=== PATIENT | male | born 1935 | race Caucasian/White ===

== ENCOUNTER 2016-02-10 23:02 | Inpatient (IN) | payer MEDICARE, OTHER ==
[~2016-02-10] VITALS: Ht 172.7 cm; Wt 90.7 kg
[~2016-02-10 23:02] MED LIST: AMIT25TA9 PO; DILT240C2 PO; DUTA0.5C PO; FURO40TA5 PO; GLYB5TAB4 PO; HYDR-429 PO; LIRA0.6P SQ; POTA10CA43 PO; PRAV40TA3 PO; PRED5TAB PO; RANO500T3 PO; VALS320T2 PO; ZOLP10TA6 PO
[2016-02-10] MEDS ORDERED: IPRATROPIUM NEB FS 0.5 MG/2.5 ML AMPUL.NEB ONE (23:20)
[2016-02-10] MEDS ORDERED: ALBUTEROL FS 2.5 MG/0.5 ML VIAL.NEB ONE (23:20)
[2016-02-10] MEDS ORDERED: methylPREDNISolone SOD SUCC 125 MG/2ML VIAL ONE (23:26)
[2016-02-10] MEDS ORDERED: FUROSEMIDE 40 MG/4 ML VIAL ONE (23:26)
[2016-02-10] MEDS ORDERED: methylPREDNISolone SOD SUCC 125 MG/2ML VIAL IV ONE (23:30)
[2016-02-10] MEDS ORDERED: ALBUTEROL FS 2.5 MG/0.5 ML VIAL.NEB NEB ONE (23:30)
[2016-02-10] MEDS ORDERED: IPRATROPIUM NEB FS 0.5 MG/2.5 ML AMPUL.NEB NEB ONE (23:30)
[2016-02-10] MEDS ORDERED: FUROSEMIDE 40 MG/4 ML VIAL IV ONE (23:30)
[2016-02-10 23:32] LABS: BASOPHILS % (AUTO) 0.4 % (0.0-2.0); DIFF TOTAL % 100 %; EOSINOPHILS # (AUTO) 0.5 /CMM (0.0-0.7); EOSINOPHILS % (AUTO) 3.8 % (0.0-6.0); HEMATOCRIT 39 % (39-51); HEMOGLOBIN 12.9 g/dL (13.5-17.5); LYMPHOCYTES # (AUTO) 2.8 /CMM (0.8-4.8); LYMPHOCYTES % (AUTO) 22.7 % (20.0-44.0); MEAN CORPUSCULAR HEMOGLOBIN 28 PG (26.0-33.0); MEAN CORPUSCULAR HGB CONC 33 g/dl (31.0-36.0); MEAN CORPUSCULAR VOLUME 84 fL (80-96); MONOCYTES # (AUTO) 0.9 /CMM (0.1-1.30); MONOCYTES % (AUTO) 7.2 % (2.0-12.0); NEUTROPHILS # (AUTO) 8.2 /CMM (1.8-8.9); NEUTROPHILS % (AUTO) 65.9 % (43.0-81.0); PLATELET COUNT (AUTO) 339 /CMM (150-450); RED BLOOD CELL COUNT(AUTO) 4.68 MIL/uL (4.5-6.0); WHITE BLOOD COUNT (AUTO) 12.4 K/uL (4.3-11.0)
[2016-02-10 23:42] LABS: ANION GAP 13 (5-14); CALCIUM, SERUM 8.2 mg/dL (8.5-10.1); CARBON DIOXIDE 29 mmol/L (21-32); CHLORIDE 105 mmol/L (98-107); GLUCOSE 146 mg/dL (74-106); POTASSIUM 3.9 mmol/L (3.5-5.1); SODIUM SERUM 143 mmol/L (136-145); UREA NITROGEN, BLOOD 25 mg/dL (7-18)
[2016-02-10 23:44] LABS: INR 0.94 (0.87-1.13); PROTHROMBIN TIME 10.1 SECS (9.5-12.7)
[2016-02-10 23:50] LABS: TROPONIN I < 0.017 ng/mL (0.00-0.056)
[2016-02-10 23:51] LABS: LACTIC ACID 0.3 mmol/L (0.4-2.0)
[2016-02-10 23:56] LABS: ALANINE AMINOTRANSFERASE 26 U/L (12-78); ALBUMIN 3.4 g/dL (3.4-5.0); BILIRUBIN,DIRECT 0.1 mg/dL (0.0-0.2); BILIRUBIN,TOTAL 0.4 mg/dL (0.2-1.0); INDIRECT BILIRUBIN 0.3 mg/dL (0.0-1.1); TOTAL PROTEIN, SERUM 6.8 g/dL (6.4-8.2)
[2016-02-11] VITALS (7 sets, daily range): BP systolic 129–146; BP diastolic 62–81
[2016-02-11 00:22] LABS: ASPARTATE AMINOTRANSFERASE 16 U/L (15-37)
[2016-02-11] MEDS ORDERED: IPRATROPIUM NEB FS 0.5 MG/2.5 ML AMPUL.NEB NEB PRN (02:00)
[2016-02-11] MEDS ORDERED: ONDANSETRON HCL/PF 4 MG/2 ML VIAL IV PRN ×2 (02:00→11:00)
[2016-02-11] MEDS ORDERED: ALBUTEROL FS 2.5 MG/3 ML VIAL.NEB NEB PRN (02:00)
[2016-02-11] MEDS ORDERED: ACETAMINOPHEN 325 MG TABLET PO PRN (02:00)
[2016-02-11] MEDS ORDERED: HYDROCODONE/APAP 10/325MG 1 EA TABLET PO PRN (02:00)
[2016-02-11] MEDS ORDERED: DEXTROSE 50%-WATER 50 ML DISP.SYRIN IV PRN (02:00)
[2016-02-11] MEDS ORDERED: INSULIN REGULAR, HUMAN 100 UNIT/ML 10 ML VIAL ONE (05:45)
[2016-02-11] MEDS: BLOOD SUGAR DIAGNOSTIC 1 EACH STRIP IN SCH ×4 (05:53→21:31)
[2016-02-11] MEDS: INSULIN REGULAR, HUMAN 100 UNIT/ML 3 ML VIAL SQ PRN ×3 (07:04→18:30)
[2016-02-11 07:37] LABS: DIFF TOTAL % 100 %; HEMATOCRIT 39 % (39-51); HEMOGLOBIN 12.9 g/dL (13.5-17.5); LYMPHOCYTES # (AUTO) 0.8 /CMM (0.8-4.8); LYMPHOCYTES % (AUTO) 6.3 % (20.0-44.0); MEAN CORPUSCULAR HEMOGLOBIN 28 PG (26.0-33.0); MEAN CORPUSCULAR HGB CONC 33 g/dl (31.0-36.0); MEAN CORPUSCULAR VOLUME 83 fL (80-96); MONOCYTES # (AUTO) 0.1 /CMM (0.1-1.30); MONOCYTES % (AUTO) 0.7 % (2.0-12.0); NEUTROPHILS # (AUTO) 11.3 /CMM (1.8-8.9); PLATELET COUNT (AUTO) 317 /CMM (150-450); RED BLOOD CELL COUNT(AUTO) 4.69 MIL/uL (4.5-6.0); WHITE BLOOD COUNT (AUTO) 12.1 K/uL (4.3-11.0)
[2016-02-11 07:59] LABS: CALCIUM, SERUM 8.4 mg/dL (8.5-10.1); CREATININE 1.1 mg/dL (0.6-1.3); PHOSPHORUS 2.1 mg/dL (2.5-4.9); POTASSIUM 3.6 mmol/L (3.5-5.1)
[2016-02-11] MEDS ORDERED: predniSONE 20 MG TABLET PO SCH (09:00)
[2016-02-11] MEDS: AMITRIPTYLINE HCL 25 MG TABLET PO SCH (09:28)
[2016-02-11] MEDS ORDERED: predniSONE 5 MG TABLET PO SCH (09:33)
[2016-02-11] MEDS: glyBURIDE 5 MG TABLET PO SCH ×2 (09:53→16:00)
[2016-02-11] MEDS: FUROSEMIDE 40 MG TABLET PO SCH (09:53)
[2016-02-11] MEDS: DUTASTERIDE (0.5 MG) 0.5 MG CAPSULE PO SCH (09:53)
[2016-02-11] MEDS: POTASSIUM CHLORIDE 10 MEQ TABLET.SA PO SCH ×2 (09:53→16:00)
[2016-02-11] MEDS: DILTIAZEM HCL CD 240 MG PO SCH (09:53)
[2016-02-11] MEDS: VALSARTAN 80 MG TABLET PO SCH (09:54)
[2016-02-11] MEDS ORDERED: K PHOS NEUTRAL 250 MG TABLET PO ONE (11:30)
[2016-02-11] MEDS: PANTOPRAZOLE 40 MG TABLET.DR PO SCH (11:53)
[2016-02-11] MEDS: HEPARIN SODIUM, PORCINE 5000 UNITS/1 ML VIAL SQ SCH ×2 (11:54→21:34)
[2016-02-11] MEDS ORDERED: methylPREDNISolone SOD SUCC 40 MG/ML VIAL IV SCH (12:00)
[2016-02-11] MEDS: methylPREDNISolone SOD SUCC 40 MG/ML VIAL IV SCH ×2 (14:17→23:03)
[2016-02-11] MEDS: RANEXA 500 MG PO SCH (16:00)
[2016-02-11] MEDS: VICTOZA SQ SCH (16:00)
[2016-02-11] MEDS ORDERED: LEVOFLOXACIN (500MG) 500 MG TABLET PO SCH (16:00)
[2016-02-11] MEDS: ALBUTEROL FS 2.5 MG/3 ML VIAL.NEB NEB SCH (20:08)
[2016-02-11] MEDS: IPRATROPIUM NEB FS 0.5 MG/2.5 ML AMPUL.NEB NEB SCH (20:08)
[2016-02-11] MEDS: ATORVASTATIN 10 MG TABLET PO SCH (21:32)
[2016-02-12] MEDS: ZOLPIDEM TARTRATE 10 MG TABLET PO PRN ×2 (01:36→21:48)
[2016-02-12] MEDS: IPRATROPIUM NEB FS 0.5 MG/2.5 ML AMPUL.NEB NEB SCH ×4 (01:41→20:04)
[2016-02-12] MEDS: ALBUTEROL FS 2.5 MG/3 ML VIAL.NEB NEB SCH ×4 (01:41→20:05)
[2016-02-12] MEDS: BLOOD SUGAR DIAGNOSTIC 1 EACH STRIP IN SCH ×4 (05:45→21:00)
[2016-02-12] MEDS: INSULIN REGULAR, HUMAN 100 UNIT/ML 3 ML VIAL SQ PRN ×4 (05:48→21:12)
[2016-02-12 06:48] LABS: DIFF TOTAL % 100 %; HEMATOCRIT 39 % (39-51); HEMOGLOBIN 12.8 g/dL (13.5-17.5); LYMPHOCYTES # (AUTO) 1.3 /CMM (0.8-4.8); LYMPHOCYTES % (AUTO) 9.1 % (20.0-44.0); MEAN CORPUSCULAR HEMOGLOBIN 28 PG (26.0-33.0); MEAN CORPUSCULAR HGB CONC 33 g/dl (31.0-36.0); MEAN CORPUSCULAR VOLUME 84 fL (80-96); MONOCYTES # (AUTO) 0.4 /CMM (0.1-1.30); MONOCYTES % (AUTO) 2.7 % (2.0-12.0); NEUTROPHILS # (AUTO) 12.1 /CMM (1.8-8.9); NEUTROPHILS % (AUTO) 88.2 % (43.0-81.0); PLATELET COUNT (AUTO) 325 /CMM (150-450); RED BLOOD CELL COUNT(AUTO) 4.64 MIL/uL (4.5-6.0); WHITE BLOOD COUNT (AUTO) 13.8 K/uL (4.3-11.0)
[2016-02-12 07:21] LABS: CREATININE 0.9 mg/dL (0.6-1.3); PHOSPHORUS 3.7 mg/dL (2.5-4.9); POTASSIUM 3.3 mmol/L (3.5-5.1)
[2016-02-12 08:00] VITALS: BP 121/54
[2016-02-12] MEDS: PANTOPRAZOLE 40 MG TABLET.DR PO SCH (08:45)
[2016-02-12] MEDS: POTASSIUM CHLORIDE 10 MEQ TABLET.SA PO SCH ×2 (08:45→17:31)
[2016-02-12] MEDS: DUTASTERIDE (0.5 MG) 0.5 MG CAPSULE PO SCH (08:46)
[2016-02-12] MEDS: AMITRIPTYLINE HCL 25 MG TABLET PO SCH (08:46)
[2016-02-12] MEDS: glyBURIDE 5 MG TABLET PO SCH ×2 (08:46→17:31)
[2016-02-12] MEDS: FUROSEMIDE 40 MG TABLET PO SCH (08:46)
[2016-02-12] MEDS: RANEXA 500 MG PO SCH ×2 (08:47→17:32)
[2016-02-12] MEDS: DILTIAZEM HCL CD 240 MG PO SCH (08:51)
[2016-02-12] MEDS: VALSARTAN 80 MG TABLET PO SCH (08:51)
[2016-02-12] MEDS: VICTOZA SQ SCH (08:52)
[2016-02-12] MEDS: HEPARIN SODIUM, PORCINE 5000 UNITS/1 ML VIAL SQ SCH ×2 (08:58→21:14)
[2016-02-12] MEDS ORDERED: Medication Not On Formulary EA (Ranolazine (Ranexa) 500 MG) PO SCH (09:00)
[2016-02-12] MEDS: methylPREDNISolone SOD SUCC 40 MG/ML VIAL IV SCH ×2 (09:10→20:56)
[2016-02-12] MEDS ORDERED: POTASSIUM CHLORIDE 20 MEQ TAB.PRT.SR PO ONE (10:30)
[2016-02-12] MEDS: LEVOFLOXACIN (750 MG) 750 MG TABLET PO SCH (11:08)
[2016-02-12 20:37] VITALS: BP 155/78
[2016-02-12] MEDS: ATORVASTATIN 10 MG TABLET PO SCH (20:56)
[2016-02-13] MEDS: IPRATROPIUM NEB FS 0.5 MG/2.5 ML AMPUL.NEB NEB SCH ×3 (01:23→13:50)
[2016-02-13] MEDS: ALBUTEROL FS 2.5 MG/3 ML VIAL.NEB NEB SCH ×3 (01:24→13:51)
[2016-02-13] MEDS: INSULIN REGULAR, HUMAN 100 UNIT/ML 3 ML VIAL SQ PRN ×2 (06:11→12:15)
[2016-02-13] MEDS: BLOOD SUGAR DIAGNOSTIC 1 EACH STRIP IN SCH ×2 (07:30→11:45)
[2016-02-13] MEDS: PANTOPRAZOLE 40 MG TABLET.DR PO SCH (07:30)
[2016-02-13 08:00] VITALS: BP 139/74
[2016-02-13] MEDS: DILTIAZEM HCL CD 240 MG PO SCH (09:00)
[2016-02-13] MEDS: DUTASTERIDE (0.5 MG) 0.5 MG CAPSULE PO SCH (10:06)
[2016-02-13] MEDS: AMITRIPTYLINE HCL 25 MG TABLET PO SCH (10:06)
[2016-02-13 10:07] VITALS: BP 139/74
[2016-02-13] MEDS: FUROSEMIDE 40 MG TABLET PO SCH (10:07)
[2016-02-13] MEDS: glyBURIDE 5 MG TABLET PO SCH (10:07)
[2016-02-13] MEDS: VALSARTAN 80 MG TABLET PO SCH (10:07)
[2016-02-13] MEDS: POTASSIUM CHLORIDE 10 MEQ TABLET.SA PO SCH (10:08)
[2016-02-13] MEDS: methylPREDNISolone SOD SUCC 40 MG/ML VIAL IV SCH (10:10)
[2016-02-13] MEDS: HEPARIN SODIUM, PORCINE 5000 UNITS/1 ML VIAL SQ SCH (10:17)
[2016-02-13] MEDS: VICTOZA SQ SCH (10:23)
[2016-02-13] MEDS: LEVOFLOXACIN (750 MG) 750 MG TABLET PO SCH (11:20)
[2016-02-13] MEDS: RANEXA 500 MG PO SCH (12:16)
== END 2016-02-13 14:50 | disposition home health service (06) | DRG 191 ==
LOC: ER 23:04 → TELE 02-11 01:33 → MED 02-11 11:46
PROVIDERS: ADMIT Internal Medicine; ATTEND Internal Medicine
DX: J44.1 Chronic obstructive pulmonary disease with (acute) exacerbation (principal); I50.32 Chronic diastolic (congestive) heart failure; E11.9 Type 2 diabetes mellitus without complications; T38.0X5A Adverse effect of glucocorticoids and synthetic analogues, initial encounter; Y92.009 Unspecified place in unspecified non-institutional (private) residence as the place of occurrence of the external cause; D72.829 Elevated white blood cell count, unspecified; G47.33 Obstructive sleep apnea (adult) (pediatric); E83.39 Other disorders of phosphorus metabolism; I50.9 Heart failure, unspecified; Z87.891 Personal history of nicotine dependence; J40 Bronchitis, not specified as acute or chronic; I11.0 Hypertensive heart disease with heart failure
CPT/HCPCS: 36415; 71010-TC; 80048-TC; 80076-TC; 82962-TC; 83605-TC; 83735-TC; 83880; 84100-TC; 84484-TC; 85025-TC; 85730-TC; 87040-TC; 87081-TC; 94799-TC; A4606; J1644; J1815; J1940; J2920; J2930; Z7610

== ENCOUNTER 2016-03-15 15:44 | Outpatient (CLI) | payer MEDICARE, OTHER ==
[~2016-03-15 15:44] MED LIST changes: -HYDR-429 PO
[2016-03-15 16:32] LABS: BASOPHILS % (AUTO) 0.4 % (0.0-2.0); DIFF TOTAL % 100 %; EOSINOPHILS # (AUTO) 0.3 /CMM (0.0-0.7); EOSINOPHILS % (AUTO) 3.4 % (0.0-6.0); HEMATOCRIT 39 % (39-51); HEMOGLOBIN 12.8 g/dL (13.5-17.5); KETONES,URINE TRACE (NEGATIVE); LEUKOCYTE ESTERASE ,URINE NEGATIVE (NEGATIVE); LYMPHOCYTES # (AUTO) 2.9 /CMM (0.8-4.8); LYMPHOCYTES % (AUTO) 35.5 % (20.0-44.0); MEAN CORPUSCULAR HEMOGLOBIN 28 PG (26.0-33.0); MEAN CORPUSCULAR HGB CONC 33 g/dl (31.0-36.0); MEAN CORPUSCULAR VOLUME 85 fL (80-96); MONOCYTES # (AUTO) 0.9 /CMM (0.1-1.30); MONOCYTES % (AUTO) 11.2 % (2.0-12.0); NEUTROPHILS % (AUTO) 49.5 % (43.0-81.0); PH,URINE 5.5 (5.0-8.0); PLATELET COUNT (AUTO) 354 /CMM (150-450); RED BLOOD CELL COUNT(AUTO) 4.62 MIL/uL (4.5-6.0); WHITE BLOOD COUNT (AUTO) 8.1 K/uL (4.3-11.0)
[2016-03-15 16:34] LABS: CALCIUM, SERUM 8.7 mg/dL (8.5-10.1); CREATININE 0.8 mg/dL (0.6-1.3); POTASSIUM 3.5 mmol/L (3.5-5.1)
[2016-03-15 16:44] LABS: ADD UA MICROSCOPIC YES
[2016-03-15 16:45] LABS: ADD URINE CULTURE NO; WBC,URINE 0-2 /HPF (0-3)
[2016-03-15 17:31] LABS: INR 0.96 (0.87-1.13); PROTHROMBIN TIME 10.1 SECS (9.5-12.7)
== END 2016-03-15 23:59 | disposition home or self-care (01) ==
LOC: LAB 15:44
PROVIDERS: ATTEND Internal Medicine Interventional Cardiology
DX: Z01.818 Encounter for other preprocedural examination (principal)
CPT/HCPCS: 36415; 80048-TC; 81000-TC; 85025-TC; 85730-TC

== ENCOUNTER 2016-05-03 11:57 | Outpatient (CLI) | payer MEDICARE, OTHER ==
[2016-05-03 12:36] LABS: ABG OXYGEN SATURATION 93.3 % (92.0-98.5); ABG PCO2 48.1 mmHg (35.0-45.0); ABG PH 7.407 (7.350-7.450); ABG PO2 68.7 mmHg (75.0-100.0); AaDO2 23.4 mmHg; COHb 0.8 % (0.5-1.5); MetHb 0.3 % (0.0-1.5); O2Hb 92.3 % (94.0-97.0); SITE, ABG Right Brachial; VENT MODE, BG ROOM AIR
== END 2016-05-03 23:59 | disposition home or self-care (01) ==
LOC: LAB 11:57
PROVIDERS: ATTEND Internal Medicine Pulmonary Disease
DX: Z01.818 Encounter for other preprocedural examination (principal); R06.02 Shortness of breath
CPT/HCPCS: 36600; 71010-TC

== ENCOUNTER 2016-09-04 20:13 | Emergency (ER) | payer MEDICARE, OTHER ==
[~2016-09-04] VITALS: Ht 165.1 cm; Wt 85.7 kg
--- NOTE | 2016-09-04 20:20 | NUR ---
TO BED 3 AMBULATORY C/O SOB X2 DAYS. WHEEZING HEARD BILATERALLY ON AUSCULTATION. NOTED PT WITH LABORED BREATHING. PLACE PT ON CARDIAC MONITORING, CONTINUOUS POX, O2@2L/NC. PENDING ER MD DUMONT.
--- NOTE | 2016-09-04 20:22 | NUR ---
ER MD AT BEDSIDE TO EVAL PT WITH ORDERS RECEIVED. WILL CARRY OUT ORDERS.
[2016-09-04] MEDS ORDERED: ALBUTEROL FS 2.5 MG/3 ML VIAL.NEB ONE ×2 (20:28→21:35)
[2016-09-04] MEDS ORDERED: Magnesium 1GM/D5W 100ML PREMIX 200 ML IV ONE ×2 (20:28→20:33)
[2016-09-04] MEDS ORDERED: IPRATROPIUM NEB FS 0.5 MG/2.5 ML AMPUL.NEB ONE ×2 (20:28→21:35)
--- NOTE | 2016-09-04 20:28 | NUR ---
RT AT BEDSIDE FOR HHN TX.
[2016-09-04] MEDS ORDERED: methylPREDNISolone SOD SUCC 125 MG/2ML VIAL IV ONE (20:30)
[2016-09-04] MEDS ORDERED: ALBUTEROL FS 2.5 MG/3 ML VIAL.NEB CONTNEB ONE (20:30)
[2016-09-04] MEDS ORDERED: IPRATROPIUM NEB FS 0.5 MG/2.5 ML AMPUL.NEB NEB ONE ×2 (20:30→21:30)
[2016-09-04] MEDS ORDERED: methylPREDNISolone SOD SUCC 125 MG/2ML VIAL ONE (20:32)
[2016-09-04 20:41] LABS: BASOPHILS # (AUTO) 0.1 /CMM (0.0-0.2); BASOPHILS % (AUTO) 0.5 % (0.0-2.0); EOSINOPHILS # (AUTO) 0.1 /CMM (0.0-0.7); EOSINOPHILS % (AUTO) 0.9 % (0.0-6.0); HEMATOCRIT 40 % (39-51); LYMPHOCYTES # (AUTO) 2.4 /CMM (0.8-4.8); LYMPHOCYTES % (AUTO) 16.7 % (20.0-44.0); MEAN CORPUSCULAR HEMOGLOBIN 27 PG (26.0-33.0); MEAN CORPUSCULAR HGB CONC 32 g/dl (31.0-36.0); MEAN CORPUSCULAR VOLUME 84 fL (80-96); MONOCYTES # (AUTO) 1.7 /CMM (0.1-1.30); MONOCYTES % (AUTO) 11.8 % (2.0-12.0); NEUTROPHILS # (AUTO) 9.8 /CMM (1.8-8.9); NEUTROPHILS % (AUTO) 70.1 % (43.0-81.0); PLATELET COUNT (AUTO) 308 /CMM (150-450); RDW COEFFICIENT OF VARIATION 15.3 (11.5-15.0); WHITE BLOOD COUNT (AUTO) 14.1 K/uL (4.3-11.0)
[2016-09-04 20:50] LABS: CALCIUM, SERUM 8.4 mg/dL (8.5-10.1); CARBON DIOXIDE 33 mmol/L (21-32); CHLORIDE 104 mmol/L (98-107); CREATININE 1.3 mg/dL (0.6-1.3); GLUCOSE 127 mg/dL (74-106); POTASSIUM 4.1 mmol/L (3.5-5.1); SODIUM SERUM 141 mmol/L (136-145); UREA NITROGEN, BLOOD 18 mg/dL (7-18)
[2016-09-04 20:59] LABS: TROPONIN I < 0.017 ng/mL (0.00-0.056)
[2016-09-04] MEDS ORDERED: LEVOFLOXACIN 750 MG /D5W 150ML 150 ML IV ONE ×2 (21:00→21:07)
[2016-09-04] MEDS ORDERED: ALBUTEROL FS 2.5 MG/3 ML VIAL.NEB NEB ONE (21:30)
--- NOTE | 2016-09-04 23:15 | NUR ---
IV removed. Catheter intact and site benign. Pressure and 4x4 applied to site. No bleeding noted. Patient discharged to home in stable condition. Written and verbal after care instructions given. Patient verbalizes understanding of instruction. ambulatory with a steady gait noted. pt aaox4 no acute distress noted, resp even and unlabored.
[2016-09-04 23:16] VITALS: BP 137/73
== END 2016-09-04 23:17 | disposition home or self-care (01) ==
LOC: ER 20:16
DX: J44.1 Chronic obstructive pulmonary disease with (acute) exacerbation (principal); I10 Essential (primary) hypertension; E11.9 Type 2 diabetes mellitus without complications
CPT/HCPCS: 36415; 71010-TC; 80048-TC; 84484-TC; 85025-TC; A4606; J1956; J2930; J3475; Z7610

== ENCOUNTER 2017-01-30 11:25 | Emergency (ER) | payer MEDICARE, OTHER ==
[~2017-01-30] VITALS: Ht 172.7 cm; Wt 88.0 kg
[2017-01-30 11:33] VITALS: BP 165/72
[2017-01-30] MEDS ORDERED: FAMOTIDINE (20 MG) 20 MG TABLET ONE (11:54)
[2017-01-30] MEDS ORDERED: diphenhydrAMINE HCL 50 MG CAPSULE ONE (11:54)
[2017-01-30] MEDS ORDERED: predniSONE 20 MG TABLET ONE (11:54)
[2017-01-30] MEDS ORDERED: FAMOTIDINE (20 MG) 20 MG TABLET PO ONE (12:00)
[2017-01-30] MEDS ORDERED: diphenhydrAMINE HCL 50 MG CAPSULE PO ONE (12:00)
[2017-01-30] MEDS ORDERED: predniSONE 10 MG TABLET PO ONE (12:00)
== END 2017-01-30 12:11 | disposition home or self-care (01) ==
LOC: ER 11:27
DX: L30.8 Other specified dermatitis (principal); I10 Essential (primary) hypertension; J44.9 Chronic obstructive pulmonary disease, unspecified; E11.9 Type 2 diabetes mellitus without complications
CPT/HCPCS: A4606; Q0163; Z7610

== ENCOUNTER 2017-03-06 14:55 | Outpatient (CLI) | payer MEDICARE, OTHER | END 2017-03-06 23:59 | disposition home or self-care (01) | LOC: RAD 14:55 | DX: J98.11 Atelectasis (principal); J84.10 Pulmonary fibrosis, unspecified; C90.00 Multiple myeloma not having achieved remission; J18.9 Pneumonia, unspecified organism | CPT/HCPCS: 71045-TC ==

== ENCOUNTER 2017-03-21 19:22 | Inpatient (IN) | payer MEDICARE, OTHER ==
[~2017-03-21] VITALS: Ht 167.6 cm; Wt 87.1 kg
[2017-03-21] MEDS ORDERED: methylPREDNISolone SOD SUCC 125 MG/2ML VIAL ONE (19:40)
[2017-03-21] MEDS ORDERED: ALBUTEROL FS 2.5 MG/3 ML VIAL.NEB ONE (19:43)
[2017-03-21] MEDS ORDERED: IPRATROPIUM NEB FS 0.5 MG/2.5 ML AMPUL.NEB ONE (19:43)
[2017-03-21 19:48] LABS: BASOPHILS # (AUTO) 0.1 /CMM (0.0-0.2); BASOPHILS % (AUTO) 0.7 % (0.0-2.0); EOSINOPHILS # (AUTO) 0.1 /CMM (0.0-0.7); EOSINOPHILS % (AUTO) 0.5 % (0.0-6.0); HEMATOCRIT 42 % (39-51); HEMOGLOBIN 14.1 g/dL (13.5-17.5); LYMPHOCYTES # (AUTO) 2.3 /CMM (0.8-4.8); LYMPHOCYTES % (AUTO) 14.7 % (20.0-44.0); MEAN CORPUSCULAR HEMOGLOBIN 28 PG (26.0-33.0); MEAN CORPUSCULAR HGB CONC 34 g/dl (31.0-36.0); MEAN CORPUSCULAR VOLUME 82 fL (80-96); MONOCYTES # (AUTO) 1.2 /CMM (0.1-1.30); MONOCYTES % (AUTO) 7.9 % (2.0-12.0); NEUTROPHILS # (AUTO) 11.9 /CMM (1.8-8.9); NEUTROPHILS % (AUTO) 76.2 % (43.0-81.0); PLATELET COUNT (AUTO) 321 /CMM (150-450); RDW COEFFICIENT OF VARIATION 15.5 (11.5-15.0); RED BLOOD CELL COUNT(AUTO) 5.13 MIL/uL (4.5-6.0); WHITE BLOOD COUNT (AUTO) 15.6 K/uL (4.3-11.0)
[2017-03-21 19:55] LABS: CARBON DIOXIDE 33 mmol/L (21-32); CHLORIDE 98 mmol/L (98-107); CREATININE 1.1 mg/dL (0.6-1.3); GLUCOSE 164 mg/dL (74-106); POTASSIUM 3.8 mmol/L (3.5-5.1); SODIUM SERUM 139 mmol/L (136-145); UREA NITROGEN, BLOOD 22 mg/dL (7-18)
[2017-03-21 19:58] LABS: INR 0.94 (0.85-1.15)
[2017-03-21] MEDS ORDERED: methylPREDNISolone SOD SUCC 125 MG/2ML VIAL IV ONE (20:00)
[2017-03-21] MEDS ORDERED: IPRATROPIUM NEB FS 0.5 MG/2.5 ML AMPUL.NEB NEB ONE (20:00)
[2017-03-21] MEDS ORDERED: ALBUTEROL FS 2.5 MG/3 ML VIAL.NEB NEB ONE (20:00)
[2017-03-21 20:01] LABS: ALANINE AMINOTRANSFERASE 21 U/L (12-78); ALBUMIN 3.7 g/dL (3.4-5.0); ALKALINE PHOSPHATASE 65 U/L (46-116); ASPARTATE AMINOTRANSFERASE 17 U/L (15-37); BILIRUBIN,DIRECT 0.2 mg/dL (0.0-0.2); TOTAL PROTEIN, SERUM 7.7 g/dL (6.4-8.2)
[2017-03-21 20:14] LABS: TROPONIN I < 0.017 ng/mL (0.00-0.056)
[2017-03-21] MEDS ORDERED: LEVOFLOXACIN 750 MG /D5W 150ML PIGGYBACK IV ONE (20:30)
[2017-03-21] MEDS ORDERED: LEVOFLOXACIN 750 MG /D5W 150ML 150 ML IV ONE (20:36)
[2017-03-21 20:39] LABS: ABG BASE EXCESS 3.9 mmol/L; ABG OXYGEN SATURATION 92.5 % (92.0-98.5); ABG PCO2 48.4 mmHg (35.0-45.0); ABG PH 7.404 (7.350-7.450); ABG PO2 67.9 mmHg (75.0-100.0); AaDO2 161.6 mmHg; COHb 0.3 % (0.5-1.5); MetHb 0.5 % (0.0-1.5); O2Hb 91.8 % (94.0-97.0); SITE, ABG Right Radial
[2017-03-21] MEDS ORDERED: IV NS 0.9% 1,000 ML IV PRN (21:19)
[2017-03-21] MEDS ORDERED: MAG HYDROX/AL HYDROX/SIMETH 30 ML UDC PO PRN (21:30)
[2017-03-21] MEDS ORDERED: Z GUARD REMEDY 2 OZ OINT TP PRN (21:30)
[2017-03-21] MEDS ORDERED: ACETAMINOPHEN 325 MG TABLET PO PRN (21:30)
[2017-03-21] MEDS ORDERED: HYDROCODONE/APAP 5/325MG 1 EACH TABLET PO PRN (21:30)
[2017-03-21] MEDS: methylPREDNISolone SOD SUCC 40 MG/ML VIAL IV SCH (21:30)
[2017-03-21] MEDS ORDERED: MAGNESIUM HYDROXIDE 30 ML UDC PO PRN (21:30)
[2017-03-21] MEDS ORDERED: ONDANSETRON HCL/PF 4 MG/2 ML VIAL IVP PRN (21:30)
[2017-03-21 22:00] VITALS: BP 127/67
[2017-03-21] MEDS: LEVALBUTEROL HCL NEB 1.25 MG/0.5 ML VIAL.NEB NEB SCH (23:30)
[2017-03-22] VITALS: BP 127/65
[2017-03-22] MEDS: LEVALBUTEROL HCL NEB 1.25 MG/0.5 ML VIAL.NEB NEB SCH (07:10)
[2017-03-22] MEDS ORDERED: PANTOPRAZOLE 40 MG TABLET.DR PO SCH (07:30)
[2017-03-22] MEDS ORDERED: IPRATROPIUM NEB FS 0.5 MG/2.5 ML AMPUL.NEB NEB SCH (07:35)
[2017-03-22 08:00] VITALS: BP 140/105
[2017-03-22] MEDS: methylPREDNISolone SOD SUCC 40 MG/ML VIAL IV SCH (08:06)
[2017-03-22 08:23] LABS: HEMATOCRIT 40 % (39-51); HEMOGLOBIN 13.2 g/dL (13.5-17.5); LYMPHOCYTES % (AUTO) 4.9 % (20.0-44.0); MEAN CORPUSCULAR HEMOGLOBIN 28 PG (26.0-33.0); MEAN CORPUSCULAR HGB CONC 33 g/dl (31.0-36.0); MEAN CORPUSCULAR VOLUME 84 fL (80-96); MONOCYTES # (AUTO) 0.5 /CMM (0.1-1.30); MONOCYTES % (AUTO) 2.5 % (2.0-12.0); NEUTROPHILS # (AUTO) 19.2 /CMM (1.8-8.9); NEUTROPHILS % (AUTO) 92.6 % (43.0-81.0); PLATELET COUNT (AUTO) 291 /CMM (150-450); RDW COEFFICIENT OF VARIATION 16.7 (11.5-15.0); RED BLOOD CELL COUNT(AUTO) 4.72 MIL/uL (4.5-6.0); WHITE BLOOD COUNT (AUTO) 20.7 K/uL (4.3-11.0)
[2017-03-22 08:23] LABS: APPEARANCE,URINE SL CLOUDY (CLEAR); BILIRUBIN,URINE NEGATIVE (NEGATIVE); BLOOD, URINE 3+ Ery/uL (NEGATIVE); COLOR,URINE YELLOW (YELLOW); KETONES,URINE TRACE (NEGATIVE); LEUKOCYTE ESTERASE ,URINE NEGATIVE (NEGATIVE); NITRITE, URINE NEGATIVE (NEGATIVE); PROTEIN,URINE 1+ mg/dl (NEGATIVE); UGLUCOSE NEGATIVE (NEGATIVE)
[2017-03-22 08:35] LABS: CALCIUM, SERUM 8.6 mg/dL (8.5-10.1); CARBON DIOXIDE 30 mmol/L (21-32); CHLORIDE 99 mmol/L (98-107); CREATININE 1.2 mg/dL (0.6-1.3); GLUCOSE 268 mg/dL (74-106); POTASSIUM 4.1 mmol/L (3.5-5.1); SODIUM SERUM 138 mmol/L (136-145); UREA NITROGEN, BLOOD 19 mg/dL (7-18)
[2017-03-22 08:38] LABS: PHOSPHORUS 3.8 mg/dL (2.5-4.9)
[2017-03-22 08:41] LABS: TROPONIN I < 0.017 ng/mL (0.00-0.056)
[2017-03-22] MEDS ORDERED: ALLA266C2 TP (09:24)
[2017-03-22] MEDS ORDERED: PANT40TA2 PO (09:24)
[2017-03-22 09:45] LABS: BACTERIA,URINE None seen /HPF (None Seen); SQUAMOUS EPITHELIAL CELL,UR Few /HPF (None Seen); WBC,URINE 0-2 /HPF (0-3)
[2017-03-22 09:56] LABS: CHOLESTEROL 272 mg/dL (<200); HDL CHOLESTEROL 51 mg/dL (40-60); LDL 204 mg/dL (0-99); TRIGLYCERIDES 55 mg/dL (30-150)
[2017-03-22 10:00] VITALS: BP 140/105
[2017-03-22] MEDS ORDERED: FLU VACC QS 2017-18(36MOS+)/PF 0.5 ML DISP.SYRIN IM ONE (10:30)
[2017-03-22] MEDS ORDERED: LEVOFLOXACIN 750 MG /D5W 150ML 750 MG in PREMIX 1 EA IV SCH (21:30)
== END 2017-03-22 11:40 | disposition home or self-care (01) | DRG 871 ==
LOC: ER 19:23 → TELE 20:40 → TELE-TD 21:04 → TELE1 21:27
PROVIDERS: ADMIT Nurse Practitioner Acute Care; ATTEND Nurse Practitioner Acute Care
DX: A41.9 Sepsis, unspecified organism (principal); J96.00 Acute respiratory failure, unspecified whether with hypoxia or hypercapnia; N17.0 Acute kidney failure with tubular necrosis; J44.1 Chronic obstructive pulmonary disease with (acute) exacerbation; I13.0 Hypertensive heart and chronic kidney disease with heart failure and stage 1 through stage 4 chronic kidney disease, or unspecified chronic kidney disease; I50.9 Heart failure, unspecified; E11.22 Type 2 diabetes mellitus with diabetic chronic kidney disease; N18.9 Chronic kidney disease, unspecified; Z99.81 Dependence on supplemental oxygen; Z95.5 Presence of coronary angioplasty implant and graft; I25.10 Atherosclerotic heart disease of native coronary artery without angina pectoris; Z87.891 Personal history of nicotine dependence; Z87.442 Personal history of urinary calculi; Z79.899 Other long term (current) drug therapy
CPT/HCPCS: 36415; 36600; 71045-TC; 80048-TC; 80061-TC; 80076-TC; 81000-TC; 82803-TC; 83605-TC; 83690-TC; 83735-TC; 84100-TC; 84443-TC; 84484-TC; 85025-TC; 85730-TC; 87040-TC; 87081-TC; 87086-TC; A4216; J1956; J2920; J2930; J7030; Q2036; Z7610

== ENCOUNTER 2017-05-01 11:27 | Emergency (ER) | payer MEDICARE, OTHER ==
[~2017-05-01] VITALS: Ht 165.1 cm; Wt 81.6 kg
[~2017-05-01 11:27] MED LIST changes: +ALLA266C2 TP; +PANT40TA2 PO
[2017-05-01 11:47] VITALS: BP 165/78
== END 2017-05-01 13:39 | disposition home or self-care (01) ==
LOC: ER 11:28
DX: S61.210A Laceration without foreign body of right index finger without damage to nail, initial encounter (principal); E11.9 Type 2 diabetes mellitus without complications; I11.0 Hypertensive heart disease with heart failure; I50.9 Heart failure, unspecified; J44.9 Chronic obstructive pulmonary disease, unspecified; F10.10 Alcohol abuse, uncomplicated; W25.XXXA Contact with sharp glass, initial encounter; Y93.89 Activity, other specified; Y92.89 Other specified places as the place of occurrence of the external cause; Y99.8 Other external cause status
CPT/HCPCS: 73140-TC; A4606; Z7610

== ENCOUNTER 2017-06-12 13:17 | Inpatient (IN) | payer MEDICARE, OTHER ==
[~2017-06-12] VITALS: Ht 177.8 cm; Wt 87.1 kg
[2017-06-12] MEDS ORDERED: BENZOIN COMPOUND TINCT 60 ML BOTTLE ONE (13:27)
[2017-06-12] MEDS ORDERED: IV NS 0.9% 500 ML BAG IV ONE (13:30)
[2017-06-12 13:42] LABS: BASOPHILS % (AUTO) 0.5 % (0.0-2.0); EOSINOPHILS % (AUTO) 1.2 % (0.0-6.0); HEMATOCRIT 41 % (39-51); HEMOGLOBIN 13.6 g/dL (13.5-17.5); LYMPHOCYTES # (AUTO) 1.4 /CMM (0.8-4.8); LYMPHOCYTES % (AUTO) 21.2 % (20.0-44.0); MEAN CORPUSCULAR HGB CONC 33 g/dl (31.0-36.0); MEAN CORPUSCULAR VOLUME 83 fL (80-96); MONOCYTES # (AUTO) 0.7 /CMM (0.1-1.30); MONOCYTES % (AUTO) 10.1 % (2.0-12.0); NEUTROPHILS # (AUTO) 4.2 /CMM (1.8-8.9); PLATELET COUNT (AUTO) 268 /CMM (150-450); RDW COEFFICIENT OF VARIATION 14.8 (11.5-15.0); RED BLOOD CELL COUNT(AUTO) 4.93 MIL/uL (4.5-6.0); WHITE BLOOD COUNT (AUTO) 6.4 K/uL (4.3-11.0)
[2017-06-12 13:52] LABS: CALCIUM, SERUM 8.2 mg/dL (8.5-10.1); CARBON DIOXIDE 31 mmol/L (21-32); CHLORIDE 101 mmol/L (98-107); CREATININE 1.2 mg/dL (0.6-1.3); GLUCOSE 218 mg/dL (74-106); POTASSIUM 3.9 mmol/L (3.5-5.1); SODIUM SERUM 135 mmol/L (136-145); UREA NITROGEN, BLOOD 14 mg/dL (7-18)
[2017-06-12 13:56] LABS: INR 0.93 (0.85-1.15)
[2017-06-12 13:58] LABS: ALANINE AMINOTRANSFERASE 21 U/L (12-78); ALKALINE PHOSPHATASE 48 U/L (46-116); ASPARTATE AMINOTRANSFERASE 13 U/L (15-37); BILIRUBIN,DIRECT 0.1 mg/dL (0.0-0.2); BILIRUBIN,TOTAL 0.8 mg/dL (0.2-1.0); TOTAL PROTEIN, SERUM 6.4 g/dL (6.4-8.2)
[2017-06-12 14:00] LABS: TROPONIN I < 0.017 ng/mL (0.00-0.056)
[2017-06-12] MEDS ORDERED: CARV25TA2 PO (14:32)
[2017-06-12] MEDS ORDERED: CANA100T PO (14:32)
[2017-06-12] MEDS ORDERED: CELE200C PO (14:32)
[2017-06-12] MEDS ORDERED: DIVA250T PO (14:32)
[2017-06-12] MEDS ORDERED: PANT40TA2 PO (14:32)
[2017-06-12] MEDS ORDERED: FLUT1DIS3 IH (14:32)
[2017-06-12] MEDS ORDERED: CLOP75TA15 PO (14:32)
[2017-06-12] MEDS ORDERED: ALPR0.25 PO (14:39)
[2017-06-12] MEDS ORDERED: HYDR-548 PO (14:39)
[2017-06-12] MEDS ORDERED: LIRA0.6P SQ (14:39)
[2017-06-12] MEDS ORDERED: TIOT4MIS3 IH (14:39)
[2017-06-12] MEDS ORDERED: ASPI-1152 PO (14:39)
[2017-06-12 16:00] VITALS: BP 161/72
[2017-06-12] MEDS ORDERED: INSULIN REGULAR, HUMAN 100 UNIT/ML 3 ML VIAL SQ PRN (18:00)
[2017-06-12] MEDS ORDERED: Medication Not On Formulary EA (Ranolazine (Ranexa) 500 MG) PO SCH (18:00)
[2017-06-12] MEDS ORDERED: HYDROCODONE/APAP 10/325MG 1 EA TABLET PO PRN (18:00)
[2017-06-12] MEDS ORDERED: ZOLPIDEM TARTRATE 10 MG TABLET PO SCH (18:00)
[2017-06-12] MEDS ORDERED: LIRAGLUTIDE 0.6 MG SQ SCH (18:00)
[2017-06-12] MEDS ORDERED: IV NS 0.9% 1,000 ML BAG IV ONE (18:00)
[2017-06-12] MEDS ORDERED: DEXTROSE 50%-WATER 50 ML DISP.SYRIN IV PRN (18:00)
[2017-06-12] MEDS ORDERED: ALPRAZOLAM 0.25 MG TABLET PO PRN (18:00)
[2017-06-12] MEDS: BLOOD SUGAR DIAGNOSTIC 1 EACH STRIP IN SCH ×2 (18:04→22:32)
[2017-06-12] MEDS: CELECOXIB 100 MG CAPSULE PO SCH (18:25)
[2017-06-12] MEDS: POTASSIUM CHLORIDE 10 MEQ TABLET.SA PO SCH (18:25)
[2017-06-12 20:00] VITALS: BP 143/71
[2017-06-12] MEDS ORDERED: IPRATROPIUM NEB FS 0.5 MG/2.5 ML AMPUL.NEB NEB PRN (20:00)
[2017-06-12] MEDS: CARVEDILOL 12.5 MG TABLET PO SCH (20:39)
[2017-06-13] VITALS: BP 133/59
[2017-06-13 04:00] VITALS: BP_SYST 115; BP_SYST 133; BP_DIAS 47; BP_DIAS 59
[2017-06-13] MEDS: BLOOD SUGAR DIAGNOSTIC 1 EACH STRIP IN SCH ×2 (06:17→11:45)
[2017-06-13 06:30] LABS: BASOPHILS % (AUTO) 0.2 % (0.0-2.0); EOSINOPHILS % (AUTO) 1.4 % (0.0-6.0); HEMATOCRIT 39 % (39-51); HEMOGLOBIN 12.8 g/dL (13.5-17.5); LYMPHOCYTES # (AUTO) 1.9 /CMM (0.8-4.8); LYMPHOCYTES % (AUTO) 30.3 % (20.0-44.0); MEAN CORPUSCULAR HGB CONC 33 g/dl (31.0-36.0); MEAN CORPUSCULAR VOLUME 84 fL (80-96); MONOCYTES % (AUTO) 15.8 % (2.0-12.0); NEUTROPHILS # (AUTO) 3.2 /CMM (1.8-8.9); NEUTROPHILS % (AUTO) 52.3 % (43.0-81.0); PLATELET COUNT (AUTO) 248 /CMM (150-450); RDW COEFFICIENT OF VARIATION 15.7 (11.5-15.0); RED BLOOD CELL COUNT(AUTO) 4.65 MIL/uL (4.5-6.0); WHITE BLOOD COUNT (AUTO) 6.2 K/uL (4.3-11.0)
[2017-06-13 07:09] LABS: CALCIUM, SERUM 8.3 mg/dL (8.5-10.1); CARBON DIOXIDE 29 mmol/L (21-32); CHLORIDE 104 mmol/L (98-107); GLUCOSE 119 mg/dL (74-106); PHOSPHORUS 3.2 mg/dL (2.5-4.9); SODIUM SERUM 139 mmol/L (136-145); UREA NITROGEN, BLOOD 14 mg/dL (7-18)
[2017-06-13] MEDS ORDERED: PANTOPRAZOLE 40 MG TABLET.DR PO SCH (07:30)
[2017-06-13 08:00] VITALS: BP 132/66
[2017-06-13] MEDS: POTASSIUM CHLORIDE 10 MEQ TABLET.SA PO SCH (08:21)
[2017-06-13] MEDS: CARVEDILOL 12.5 MG TABLET PO SCH (08:21)
[2017-06-13] MEDS: CELECOXIB 100 MG CAPSULE PO SCH (08:21)
[2017-06-13] MEDS ORDERED: CLOPIDOGREL BISULFATE 75 MG TABLET PO SCH (09:00)
[2017-06-13] MEDS ORDERED: predniSONE 5 MG TABLET PO SCH (09:00)
[2017-06-13] MEDS ORDERED: ASPIRIN EC 81 MG TABLET.DR PO SCH (09:00)
[2017-06-13] MEDS ORDERED: ATORVASTATIN 10 MG TABLET PO SCH (09:00)
[2017-06-13] MEDS ORDERED: Medication Not On Formulary EA (Canagliflozin (Invokana) 100 MG) PO SCH (09:00)
[2017-06-13] MEDS ORDERED: FLUTICASONE/VILANTEROL 1 EACH BLST.W.DEV IH SCH (09:00)
[2017-06-13] MEDS ORDERED: FUROSEMIDE 40 MG TABLET PO SCH (09:00)
[2017-06-13 09:02] LABS: BAND % (MANUAL) 1 % (0.0-5.0); EOSINOPHILS % (MANUAL) 3 % (0-4); LYMPHOCYTES % (MANUAL) 30 % (16-48); MONOCYTES % (MANUAL) 16 % (0-11.0); MYELOCYTES % 1 % (0-0); NEUTROPHILS % (MANUAL) 49 (42-76)
[2017-06-13 09:14] VITALS: BP_SYST 121; BP_SYST 134; BP_DIAS 57; BP_DIAS 60; BP_DIAS 66
[2017-06-13 12:00] VITALS: BP 125/60
== END 2017-06-13 12:53 | disposition home or self-care (01) | DRG 638 ==
LOC: ER 13:18 → TELE 15:28
PROVIDERS: ADMIT Internal Medicine; ATTEND Internal Medicine
PROC: 09B00ZZ Excision of Right External Ear, Open Approach (ICD-10-PCS; principal; 2017-06-13)
DX: E11.649 Type 2 diabetes mellitus with hypoglycemia without coma (principal); I50.32 Chronic diastolic (congestive) heart failure; I11.0 Hypertensive heart disease with heart failure; J44.9 Chronic obstructive pulmonary disease, unspecified; W18.30XA Fall on same level, unspecified, initial encounter; E78.5 Hyperlipidemia, unspecified; I25.10 Atherosclerotic heart disease of native coronary artery without angina pectoris; A08.4 Viral intestinal infection, unspecified; K21.9 Gastro-esophageal reflux disease without esophagitis; N40.0 Benign prostatic hyperplasia without lower urinary tract symptoms; G47.00 Insomnia, unspecified; S51.812A Laceration without foreign body of left forearm, initial encounter; Y92.89 Other specified places as the place of occurrence of the external cause; S00.401A Unspecified superficial injury of right ear, initial encounter
CPT/HCPCS: 36415; 70450-TC; 71045-TC; 80048-TC; 80076-TC; 82962-TC; 83735-TC; 84100-TC; 84484-TC; 85025-TC; 85730-TC; 87081-TC; A4606; A6402; J1815; J7030; J7040; J7512; Z7610

== ENCOUNTER 2017-06-15 12:25 | Outpatient (CLI) | payer MEDICARE, OTHER ==
[~2017-06-15 12:25] MED LIST changes: -ALLA266C2 TP; +ALPR0.25 PO; -AMIT25TA9 PO; +ASPI-1152 PO; +CANA100T PO; +CARV25TA2 PO; +CELE200C PO; +CLOP75TA15 PO; -DILT240C2 PO; -DUTA0.5C PO; +FLUT1DIS3 IH; -GLYB5TAB4 PO; +HYDR-548 PO; +TIOT4MIS3 IH; -VALS320T2 PO
== END 2017-06-15 23:59 | disposition home or self-care (01) ==
LOC: WOU 12:25
PROVIDERS: ATTEND Surgery
DX: S01.311A Laceration without foreign body of right ear, initial encounter (principal); S51.812A Laceration without foreign body of left forearm, initial encounter; X58.XXXA Exposure to other specified factors, initial encounter; Y92.89 Other specified places as the place of occurrence of the external cause; I10 Essential (primary) hypertension; E11.9 Type 2 diabetes mellitus without complications; J44.9 Chronic obstructive pulmonary disease, unspecified; Z87.891 Personal history of nicotine dependence; Z98.61 Coronary angioplasty status
CPT/HCPCS: 11100; 88305-TC; 88342; A6402; J3490

== ENCOUNTER 2017-06-22 13:10 | Outpatient (CLI) | payer MEDICARE, OTHER | END 2017-06-22 23:59 | disposition home or self-care (01) | LOC: WOU 13:10 | PROVIDERS: ATTEND Surgery | DX: S01.311D Laceration without foreign body of right ear, subsequent encounter (principal); L98.495 Non-pressure chronic ulcer of skin of other sites with muscle involvement without evidence of necrosis; X58.XXXD Exposure to other specified factors, subsequent encounter; E11.9 Type 2 diabetes mellitus without complications; I10 Essential (primary) hypertension; J44.9 Chronic obstructive pulmonary disease, unspecified; Z87.891 Personal history of nicotine dependence | CPT/HCPCS: 11043; A6402 ==

== ENCOUNTER 2017-06-26 13:33 | Outpatient (CLI) | payer MEDICARE, OTHER | END 2017-06-26 23:59 | disposition home or self-care (01) | LOC: WOU 13:33 | PROVIDERS: ATTEND Surgery | DX: C44.222 Squamous cell carcinoma of skin of right ear and external auricular canal (principal) | CPT/HCPCS: A6402; G0463 ==

== ENCOUNTER 2017-07-06 13:08 | Outpatient (CLI) | payer MEDICARE, OTHER | END 2017-07-06 23:59 | disposition home or self-care (01) | LOC: WOU 13:08 | PROVIDERS: ATTEND Surgery | DX: C44.222 Squamous cell carcinoma of skin of right ear and external auricular canal (principal); S51.812D Laceration without foreign body of left forearm, subsequent encounter; X58.XXXD Exposure to other specified factors, subsequent encounter | CPT/HCPCS: A6402; G0463 ==

== ENCOUNTER 2017-07-10 12:20 | Inpatient (IN) | payer MEDICARE, MEDICAID ==
[~2017-07-10] VITALS: Ht 172.7 cm; Wt 83.5 kg
[2017-07-10 13:00] VITALS: BP 148/76
[2017-07-10 13:15] VITALS: BP 145/76
--- NOTE | 2017-07-10 13:15 | NUR ---
MS RN NOTES 82 YEARS OLD MALE, A/O X4, BURMESE SPEAKING. UNDERSTAND AND SPEAK SOME HEBREW. ON ROOM AIR, TOLERATING WELL. VS TAKEN AND RECORDED, NO IVC IN PLACE. PATIENT IS AMBULATORY WITH STEADY BALANCE. SKIN BODY ASSESSMENT CHECKED, SKIN INTACT. DAUGHTER AT THE BEDSIDE, DAUGHTER IMANI CONSENTED PROCEDURE FOR RIGHT EAR BIOPSY. PATIENT ORIENTED TO ROOM, STAFF, UNIT. SAFETY MEASURES IN PLACE, CALL LIGHT WITHIN REACH. NOTIFIED DR. HUTCHINS. WILL CONT TO MONITOR.
--- NOTE | 2017-07-10 13:56 | NUR ---
CAMILA MS NOTES PATIENT TRANSFERRED TO OR FOR RIGHT EAR BIOPSY BY DR. COPE
[2017-07-10] MEDS ORDERED: FENTANYL PF 100MCG/2ML AMPUL ONE (14:08)
[2017-07-10] MEDS ORDERED: SUCCINYLCHOLINE CHLORIDE 20 MG/ML VIAL ONE (14:09)
[2017-07-10] MEDS ORDERED: BUPIVACAINE 0.25% 75 MG/30 ML VIAL ONE (14:19)
[2017-07-10] MEDS ORDERED: LIDOCAINE 1%-EPI 1:100,000 20 ML VIAL ONE (14:20)
[2017-07-10] MEDS ORDERED: ONDANSETRON HCL/PF 4 MG/2 ML VIAL IVP PRN (14:30)
[2017-07-10] MEDS ORDERED: DEXTROSE 50%-WATER 50 ML DISP.SYRIN IV PRN (14:30)
[2017-07-10] MEDS ORDERED: ZOLPIDEM TARTRATE 10 MG TABLET PO PRN (14:30)
[2017-07-10] MEDS ORDERED: *INSULIN REGULAR(HUMULIN R)HUM 100 UNIT/ML VIAL SQ PRN (14:30)
[2017-07-10] MEDS ORDERED: INSULIN REGULAR, HUMAN 100 UNIT/ML 3 ML VIAL SQ PRN (14:30)
[2017-07-10] MEDS ORDERED: ACETAMINOPHEN 325 MG TABLET PO PRN (14:30)
[2017-07-10] MEDS ORDERED: ALPRAZOLAM 0.25 MG TABLET PO PRN (14:30)
[2017-07-10] MEDS ORDERED: HYDROCODONE/APAP 5/325MG 1 EACH TABLET PO PRN (14:30)
[2017-07-10] MEDS ORDERED: MAGNESIUM HYDROXIDE 30 ML UDC PO PRN (14:30)
[2017-07-10] MEDS ORDERED: MAG HYDROX/AL HYDROX/SIMETH 30 ML UDC PO PRN (14:30)
[2017-07-10] MEDS ORDERED: ANESTHESIA TRAY IN PYXIS 1 EA TRAY MC ONE (14:31)
[2017-07-10] MEDS ORDERED: BACITRACIN OPHTH OINT 3.5 GM TUBE ONE (16:10)
[2017-07-10 17:15] VITALS: BP 142/81
[2017-07-10 17:20] VITALS: BP 143/78
--- NOTE | 2017-07-10 17:23 | NUR ---
RN MS NOTES PATIENT CAME BACK FROM OR S/P RIGHT EAR CANCER RESECTION AND RECONSTRUCTION BY DR. COPE. WITH POST-OP ORDERS. RIGHT EAR DRESSING INTACT. IV ON LEFT HAND #20 - PATENT AND INTACT. ON ROOM AIR - TOLERATING WELL. NO SOB. WILL MONITOR PATIENT CLOSELY.
[2017-07-10] MEDS: BLOOD SUGAR DIAGNOSTIC 1 EACH STRIP VI SCH ×2 (17:50→21:19)
[2017-07-10] MEDS: POTASSIUM CHLORIDE 10 MEQ TABLET.SA PO SCH (17:55)
[2017-07-10] MEDS ORDERED: MORPHINE SULFATE INJ 4 MG/ML DISP.SYRIN IV PRN (18:00)
[2017-07-10] MEDS ORDERED: MORPHINE SULFATE INJ 2 MG/ML DISP.SYRIN IV PRN (18:00)
[2017-07-10] MEDS ORDERED: DOCUSATE SODIUM 100 MG CAPSULE PO PRN (18:00)
[2017-07-10] MEDS ORDERED: ATROVENT PO PRN (19:00)
--- NOTE | 2017-07-10 19:00 | NUR ---
RN MS CLOSING NOTES PATIENT IN BED AWARE; VERBALLY RESPONSIVE, ABLE TO MAKE NEEDS KNOWN. BREATHING EVEN AND UNLABORED -TOLERATING ROOM AIR. NO COMPLAINTS OF PAIN OR DISCOMFORT. NO APPARENT DISTRESS. RIGHT EAR DRESSING INTACT. NO BLEEDING. COLLECTED MRSA SWAB - SENT TO THE LAB. INSTRUCTED PATIENT TO USE INCENTIVE SPIROMETER EVERY HOUR WHILE AWAKE. LABS ORDERED IN THE MORNING. SAFETY PRECAUTIONS IN PLACE. CALL LIGHT WITHIN REACH. ENDORSED TO ON COMING RN FOR CONTINUITY OF CARE.
--- NOTE | 2017-07-10 19:30 | NUR ---
MS RN OPENING NOTES RECEIVED PT SITTING UP IN BED, A & O X 4, CHINESE/SENEGALESE SPEAKING. NO C/O PAIN, NO DIZZINESS, NO SOB, NO ACUTE DISTRESS NOTED. S/P RIGHT EAR RESECTION & RECONSTRUCTION, NO S/S OF BLEEDING OR DRAINAGE NOTED. ABLE TO USE INCENTIVE SPIROMETER BY HIMSELF, VERBALIZED UNDERSTANDING. AMBULATORY TOLERATED. IV ACCESS TO LFA, HL, INTACT PATENT. BED IN LOW LOCKED POSITION. CALL LIGHT WITHIN REACH. WILL CONTINUE TO MONITOR.
[2017-07-10 20:00] VITALS: BP 149/70
[2017-07-10 20:09] VITALS: BP 149/70
[2017-07-10] MEDS: CARVEDILOL 12.5 MG TABLET PO SCH (21:17)
[2017-07-10] MEDS ORDERED: ATORVASTATIN 10 MG TABLET PO SCH (22:00)
[2017-07-10] MEDS ORDERED: ANCEF 1 GM/50 ML D5W IV SCH ×2 (22:00)
--- NOTE | 2017-07-10 22:10 | NUR ---
MS RN NOTE PT WAS STARTED WITH ANCEF ORDERED, PT WANTED TO DISCONNECT THE IV TO USE THE RESTROOM & WENT FOR A WALK. CAME BACK, STARTED IV ANTIBIOTIC AGAIN, AFTER A WHILE PT REPORTED REDNESS OF HANDS, WHICH PT STATED IT HAPPENED FROM THE IV MEDICINE. STOPPED THE IV RIGHT AWAY. VS CHECKED 145/62, 64, 20, 94 % @ RA. NO C/O PAIN. NO OTHER SYMPTOMS NOTED 2 THIS TIME. OBSERVING CLOSELY.
--- NOTE | 2017-07-10 22:40 | NUR ---
MS RN NOTE PT C/O SLIGHT SOB, REDNESS OF HANDS REMAINS THE SAME. O2 STARTED @ LPM. PAGED MD TO INFORM ABOUT YASH AFTER STARTING IV ANTIBIOTIC TREATMENT. MONITORING PT VERY CLOSELY. CN MADE AWARE WELL.
--- NOTE | 2017-07-10 23:00 | NUR ---
PAGED AGAIN PAGED AGAIN, DR DE LA TORRE IS BOARD FILLER FOR DR ROSEN. WAITING FOR MD TO CALL BACK. PT REMAINS STABLE, BUT REDNESS REMAINS THE SAME. SOB IMPROVED WITH O2. MONITORING CLOSELY.
--- NOTE | 2017-07-10 23:20 | NUR ---
CALLED BACK DR DE LA TORRE CALLED BACK, INFORMED MD ABOUT PT'S FINDINGS, ORDERED TO DC ANCEF, GIVE BENADRYL 25MG IV ONCE. ASKED MD IF ANY OTHER ANTIBIOTIC WOULD BE PRESCRIBE, ASKED THE NURSE TO CHECK WITH DR ROSEN IN AM, NO NEW ANTIBIOTIC ORDER RECEIVED FROM MD @ THIS TIME. PT IS IN STABLE CONDITION.
--- NOTE | 2017-07-10 23:55 | NUR ---
BENADRYL GIVEN BENADRYL GIVEN ORDERED. WILL MONITOR FOR EFFECTIVENESS. NO SOB NOTED.
[2017-07-11] MEDS ORDERED: diphenhydrAMINE HCL 50 MG/ML VIAL IV ONE
--- NOTE | 2017-07-11 00:34 | NUR ---
PRN NORCO GIVEN PT C/O PAIN TO RIGHT EAR 07/16 & ASKED TO TAKE NORCO ONLY @ THIS TIME. PRN NORCO GIVEN. WILL MONITOR FOR THE EFFECTIVENESS.
[2017-07-11] MEDS: BLOOD SUGAR DIAGNOSTIC 1 EACH STRIP VI SCH ×2 (06:50→13:11)
--- NOTE | 2017-07-11 07:01 | NUR ---
MS RN CLOSING NOTES PT SLEPT INTERMITTENTLY @ NIGHT, A & O X 4, MAORI/TURKMEN SPEAKING. NO C/O PAIN, NO DIZZINESS, NO SOB, NO ACUTE DISTRESS NOTED. S/P RIGHT EAR RESECTION & RECONSTRUCTION, NO S/S OF BLEEDING OR DRAINAGE NOTED. ABLE TO USE INCENTIVE SPIROMETER BY HIMSELF, VERBALIZED UNDERSTANDING. AMBULATORY TOLERATED. IV ACCESS TO LFA, HL, INTACT PATENT. HOB ELEVATED > 45 DEGREE. BED IN LOW LOCKED POSITION. CALL LIGHT WITHIN REACH. WILL ENDORSE TO AM RN.
[2017-07-11] MEDS ORDERED: PANTOPRAZOLE 40 MG TABLET.DR PO SCH (07:30)
--- NOTE | 2017-07-11 07:41 | NUR ---
MS RN OPENING NOTES RECEIVED PT FROM NIGHTSHIFT NURSE IN STABLE CONDITION. PT IS A/O X4. NO SOB OR SIGNS OF DISTRESS NOTED. BREATHING IS EVEN AND UNLABORED. PT ON RA AND SATING WELL. FACIAL DRESSINGS NOTED TO BE CLEAN, DRY AND INTACT. IV TO LEFT UPPER ARM NOTED TO BE PATENT AND INTACT. NO REDNESS OR SIGNS OF INFILTRATION NOTED. BED IN LOW LOCKED POSITION, SIDE RAILS UP X2, CALL LIGHT WITHIN REACH. WILL CONTINUE TO MONITOR
[2017-07-11 08:00] VITALS: BP 132/63
[2017-07-11 08:05] LABS: BASOPHILS % (AUTO) 0.2 % (0.0-2.0); EOSINOPHILS % (AUTO) 0.9 % (0.0-6.0); HEMATOCRIT 37 % (39-51); HEMOGLOBIN 12.2 g/dL (13.5-17.5); LYMPHOCYTES # (AUTO) 2.3 /CMM (0.8-4.8); LYMPHOCYTES % (AUTO) 24.6 % (20.0-44.0); MEAN CORPUSCULAR HGB CONC 33 g/dl (31.0-36.0); MEAN CORPUSCULAR VOLUME 83 fL (80-96); NEUTROPHILS # (AUTO) 5.9 /CMM (1.8-8.9); NEUTROPHILS % (AUTO) 63.3 % (43.0-81.0); PLATELET COUNT (AUTO) 275 /CMM (150-450); RDW COEFFICIENT OF VARIATION 15.9 (11.5-15.0); RED BLOOD CELL COUNT(AUTO) 4.39 MIL/uL (4.5-6.0); WHITE BLOOD COUNT (AUTO) 9.3 K/uL (4.3-11.0)
[2017-07-11] MEDS: POTASSIUM CHLORIDE 10 MEQ TABLET.SA PO SCH (08:20)
[2017-07-11 08:21] VITALS: BP 132/63
[2017-07-11] MEDS: CARVEDILOL 12.5 MG TABLET PO SCH (08:21)
[2017-07-11 08:36] LABS: CALCIUM, SERUM 8.2 mg/dL (8.5-10.1); CARBON DIOXIDE 33 mmol/L (21-32); CHLORIDE 104 mmol/L (98-107); GLUCOSE 222 mg/dL (74-106); MAGNESIUM 1.8 mg/dL (1.8-2.4); PHOSPHORUS 3.1 mg/dL (2.5-4.9); POTASSIUM 3.5 mmol/L (3.5-5.1); SODIUM SERUM 142 mmol/L (136-145); UREA NITROGEN, BLOOD 22 mg/dL (7-18)
[2017-07-11] MEDS ORDERED: FUROSEMIDE 40 MG TABLET PO SCH (09:00)
[2017-07-11] MEDS ORDERED: FLUTICASONE/VILANTEROL 1 EACH BLST.W.DEV IH SCH (09:00)
[2017-07-11] MEDS ORDERED: MORPHINE SULFATE INJ 4 MG/ML DISP.SYRIN IV PRN (09:03)
--- NOTE | 2017-07-11 13:52 | NUR ---
MS RN NOTES: LEVAQUIN INFUSION PER DR. KHALIL, "HOLD LEVAQUIN DOSE DR. COPE STATES THAT HE DOES NOT NEED IT"
[2017-07-11] MEDS ORDERED: LEVOFLOXACIN 500 MG /D5W 100ML 500 MG in PREMIX 1 EA IV ONE (14:00)
--- NOTE | 2017-07-11 14:02 | NUR ---
MS BACKEND DEVELOPER NOTES PT DISCHARGED HOME IN STABLE CONDITION. ALL NEEDS WERE MET DURING SHIFT AND ORDERS CARRIED OUT ACCORDINGLY. ALL DUE MEDS GIVEN. VITALS STABLE PRIOR TO D/C. IV SUCCESSFULLY REMOVED WITH NO COMPLICATIONS. DISCHARGE INSTRUCTIONS GIVEN TO PT AND FAMILY USING EXIT CARE MATERIALS. PT SIGNED ALL D/C FORMS INCLUDING BELONGINGS LIST. HE DEFERRED D/C PHOTOS AT THIS TIME. HOME MEDICATIONS GIVEN TO PT. HE LEFT WITH ALL OTHER BELONGINGS. HE WAS SAFELY ESCORTED TO THE MAIN LOBBY AND LEFT VIA PRIVATE VEHICLE.
== END 2017-07-11 14:15 | disposition home or self-care (01) | DRG 581 ==
LOC: DS 12:20 → MED 12:45
PROVIDERS: ADMIT Internal Medicine Nephrology; ATTEND Internal Medicine Nephrology
PROC: 0HB2XZZ Excision of Right Ear Skin, External Approach (ICD-10-PCS; 2017-07-10)
PROC: 0HX2XZZ Transfer Right Ear Skin, External Approach (ICD-10-PCS; principal; 2017-07-10 14:00)
DX: C44.222 Squamous cell carcinoma of skin of right ear and external auricular canal (principal); E11.22 Type 2 diabetes mellitus with diabetic chronic kidney disease; J44.9 Chronic obstructive pulmonary disease, unspecified; I25.10 Atherosclerotic heart disease of native coronary artery without angina pectoris; I12.9 Hypertensive chronic kidney disease with stage 1 through stage 4 chronic kidney disease, or unspecified chronic kidney disease; Z87.442 Personal history of urinary calculi; N18.9 Chronic kidney disease, unspecified; Z79.4 Long term (current) use of insulin
CPT/HCPCS: 36415; 80048-TC; 82962-TC; 83735-TC; 84100-TC; 85025-TC; 87081-TC; 88305-TC; 88331-TC; A4216; A6402; A6403; J0330; J0690; J1200; J1815; J1956; J3010; J3490; J7060; Z7610

== ENCOUNTER 2017-07-13 13:25 | Outpatient (CLI) | payer MEDICARE, MEDICAID | END 2017-07-13 23:59 | disposition home or self-care (01) | LOC: WOU 13:25 | PROVIDERS: ATTEND Surgery | DX: Z48.817 Encounter for surgical aftercare following surgery on the skin and subcutaneous tissue (principal); C44.222 Squamous cell carcinoma of skin of right ear and external auricular canal; S51.812D Laceration without foreign body of left forearm, subsequent encounter; X58.XXXD Exposure to other specified factors, subsequent encounter | CPT/HCPCS: A6402; G0463 ==

== ENCOUNTER 2017-07-20 12:53 | Outpatient (CLI) | payer MEDICARE, MEDICAID | END 2017-07-20 23:59 | disposition home or self-care (01) | LOC: WOU 12:53 | PROVIDERS: ATTEND Surgery | DX: Z48.817 Encounter for surgical aftercare following surgery on the skin and subcutaneous tissue (principal); C44.222 Squamous cell carcinoma of skin of right ear and external auricular canal; S51.812D Laceration without foreign body of left forearm, subsequent encounter; X58.XXXD Exposure to other specified factors, subsequent encounter; E11.9 Type 2 diabetes mellitus without complications; I10 Essential (primary) hypertension; J44.9 Chronic obstructive pulmonary disease, unspecified | CPT/HCPCS: A6402; G0463 ==

== ENCOUNTER 2017-08-03 11:35 | Outpatient (CLI) | payer MEDICARE, OTHER | END 2017-08-03 23:59 | disposition home or self-care (01) | LOC: WOU 11:35 | PROVIDERS: ATTEND Surgery | DX: Z48.3 Aftercare following surgery for neoplasm (principal); C44.222 Squamous cell carcinoma of skin of right ear and external auricular canal; E11.9 Type 2 diabetes mellitus without complications; I10 Essential (primary) hypertension; J44.9 Chronic obstructive pulmonary disease, unspecified; S51.812D Laceration without foreign body of left forearm, subsequent encounter; X58.XXXD Exposure to other specified factors, subsequent encounter | CPT/HCPCS: G0463; Z7610 ==

== ENCOUNTER 2017-10-02 14:15 | Outpatient (CLI) | payer MEDICARE, OTHER | END 2017-10-02 23:59 | disposition home or self-care (01) | LOC: WOU 14:15 | PROVIDERS: ATTEND Surgery | DX: Z08 Encounter for follow-up examination after completed treatment for malignant neoplasm (principal); Z85.828 Personal history of other malignant neoplasm of skin; J44.9 Chronic obstructive pulmonary disease, unspecified; I10 Essential (primary) hypertension; E11.9 Type 2 diabetes mellitus without complications; Z79.52 Long term (current) use of systemic steroids | CPT/HCPCS: G0463; Z7610 ==

== ENCOUNTER 2018-01-01 13:30 | Outpatient (CLI) | payer MEDICARE, OTHER ==
[~2018-01-01 13:30] MED LIST changes: +ALBU18HF2 IH; +ERGO500014 PO; +HYDR-4354 PO; -HYDR-548 PO; -PANT40TA2 PO
== END 2018-01-01 23:59 | disposition home or self-care (01) ==
LOC: WOU 13:30
PROVIDERS: ATTEND Surgery
DX: Z08 Encounter for follow-up examination after completed treatment for malignant neoplasm (principal); Z85.828 Personal history of other malignant neoplasm of skin; I10 Essential (primary) hypertension; E11.9 Type 2 diabetes mellitus without complications; Z87.891 Personal history of nicotine dependence
CPT/HCPCS: G0463; Z7610

== ENCOUNTER 2018-08-17 12:41 | Outpatient (CLI) | payer MEDICARE, OTHER | END 2018-08-17 23:59 | disposition home or self-care (01) | LOC: RAD 12:41 | DX: S89.91XA Unspecified injury of right lower leg, initial encounter (principal); I10 Essential (primary) hypertension; E11.9 Type 2 diabetes mellitus without complications; J44.9 Chronic obstructive pulmonary disease, unspecified; X58.XXXA Exposure to other specified factors, initial encounter; Y93.89 Activity, other specified; Y92.89 Other specified places as the place of occurrence of the external cause; Y99.8 Other external cause status | CPT/HCPCS: 73590-TC ==